=== PATIENT | male | born 1940 | race Caucasian/White ===

== ENCOUNTER → 2017-11-29 | Outpatient (CLI) | payer OTHER ==
[~2017-11-29] VITALS: Ht 180.3 cm; Wt 83.9 kg
[~2017-11-29] MED LIST: ALPRAZOLAM ER0.5 MG PO; CARBIDOPA-LEVO1 EAC6 PO; CARISOPRODOL 3350 MG PO; CARTIA XT180 M1 PO; CLONIDINE0.1 PO; HYDROCODON-ACE1 EAC5 PO; INTRATHECAL MED IT; LASIX 40 MG TAB40 M2 PO; METOLAZONE 2.52.5 MG PO; MIRAPEX0.5 MG PO; NEURONTIN 400400 M1 PO; NORCO 10-325 T1 EACH PO; POTASSIUM20 PO; REMERON15 MG PO; SIMVASTATIN40 MG PO; XANAX 0.5 MG0.5 M1 PO; ZANAFLEX4 MG PO
--- NOTE | ~2017-11-29 | HPC ---
[facility] [address] [place] [address] PAIN MANAGEMENT CONSULTATION Name: PAUL KIMBALL Room #: REG [facility] Avni.#: [id number] Admission: 11/29/17 Attend Phys: Gene Vanegas MD Discharge: Date of : 40 Report #: [id number] THIS REPORT FOR: //name// CC: Deja Esteves DO DATE OF SERVICE: 11/29/2017 CHIEF COMPLAINT: Chronic low back pain with intrathecal pump management and opioid management under terms of written agreement. I am seeing the patient today for the first time in many years. Apparently, I was involved in his care in 2010 when he first began intrathecal therapy. Dr. Esteves has been managing his intrathecal pump at [facility]. The pump has been providing him with good pain relief as long as he can supplement a bit with hydrocodone 10/[address] Esteves has been providing both management tools for him and sees him at 2-month intervals. He complains today of pain in his low back, status post laminectomy and he has some radicular pain as well. Pain is fairly intense with standing and weightbearing, but with medication, he is able to reduce it by at least 50%. He is grateful for the pain relief and denies any significant side effects. He is able to function at a much better level standing, walking and other simple activities of daily livings have been more accessible to him with medication. He has Parkinson's disease, has been followed with neurologist. Medications have been juggled a bit, I am trying to find the best care. His tremor has been fairly well controlled and his disease progress has been slow as of late. He is a pleasant and outgoing gentleman who is supported by family. PHYSICAL EXAMINATION: Demonstrates outgoing 77-year-old, alert and oriented with no signs of medication , anxiety, depression or dementia. He is 5 feet 11 inches, 185 pounds, his BMI is 25.8. His blood pressure is 165/83, heart rate 63, respirations 18. He scores his pain as a 5/10. He has fallen in the last 3 months and is a slight fall risk due to his Parkinson's disease. He is on no blood thinners. No hypertension. He moves from sitting to standing position independently. His gait is antalgic. He has limited range of motion of the lumbar spine and tenderness across the lumbosacral segment. Straight leg raising reproduces some tightness and discomfort into both legs. A slight tremor is noted. Sensation is intact. IMPRESSION: 1. Chronic low back pain with radiculopathy, post-laminectomy syndrome. 2. Management of intrathecal infusion pump. [facility] [address] [place] [address] PAIN MANAGEMENT CONSULTATION Name: PAUL KIMBALL Room #: REG CLRiccardo Izquierdo#: [id number] Admission: 11/29/17 Attend Phys: Gene Vanegas MD Discharge: Date of : 40 Report #: [id number] 3. Management of high risk medications under terms of an opioid agreement. I made an adjustment in his intrathecal pump today. I have increased his dose slightly including his basal rate as well as his flex rate. This will change his refill date to January 24 and we will see him back in the clinic at that time for refill. He is out of medication, Dr. Esteves has been providing him with hydrocodone 10/325 four times daily for an MME of 40 in addition to alprazolam 0.5 mg at bedtime, which he uses for sleep. We discussed the risks associated with benzodiazepine and opioid in combination, but he has been taking it long enough that he has proven that is safe for him. Safeguarding of all medications is the most important aspect of our opioid agreement and he assured me that he carefully manages his medicines. Dr. Esteves has given him Soma and other sedating medications in the past, but I have told at this point in time I would like to hold off on those if we can. Continues to smoke, he was counseled about smoking cessation. He can find smoking programs at cdc.gov. Follow up visit planned on January 24. By: [id number] Gene Vanegas MD /nt
[2017-11-29 14:25] VITALS: BP 165/83
== END ==
LOC: PAIN 07:31
DX: M54.16 Radiculopathy, lumbar region (principal); G89.29 Other chronic pain; Z79.891 Long term (current) use of opiate analgesic

== ENCOUNTER → 2018-01-03 | Outpatient (CLI) | payer OTHER ==
[~2018-01-03] VITALS: Ht 180.3 cm; Wt 85.2 kg
--- NOTE | ~2018-01-03 | HPC ---
[facility] [place] [place] [address] PAIN MANAGEMENT CONSULTATION Name: PAUL KIMBALL Room #: REG ROMAIN Izquierdo#: [id number] Admission: 01/03/18 Attend Phys: Gene Vanegas MD Discharge: Date of : 40 Report #: [id number] THIS REPORT FOR: //name// CC: Gene Garcia DATE OF SERVICE: 01/03/2018 Followup visit for management of intrathecal infusion pump. The patient is here today for the purpose of tapering his intrathecal medications. He has had an intrathecal pump now for nearly a decade. He is not certain that he wants to continue with intrathecal medications in part because of his insurance coverage at the [facility]. He would like to get all of his care there and there is no one there to manage his pump. He is aware that there are some programs, which will allow for outside care to be covered when the care cannot be provided at the [facility]. We did, however, raise the possibility that over time some patients are able to taper off of the more complex intrathecal medication and are able to be managed with oral medications. This would not be a major transition since Dr. Esteves has been providing with oral medication as a supplement to his intrathecal pump throughout the years of his management. He currently uses hydrocodone 10/325 4 times daily for an MME of 40 in addition to alprazolam for anxiety and carisoprodol up to 3 times a day. We are well aware of the sedating properties of these three medications when taken together; however, as we have often seen patients who take medications chronically develop significant tolerance to the side effects. The patient's use of these medications has shown that he has been able to take them with some therapeutic benefit and minimal side effects. I have cautioned him about the use of the Soma and alprazolam and that he should use them only as needed and at the lowest possible dose. Comorbidities include Parkinson's disease and he is on medications for that condition as well. All medications have been reviewed and reconciled from the electronic medical record. He needs no new prescriptions today. PQRS review reports no evidence of significant osteoarthritis. He is lean with a BMI of 26. Vital signs: Blood pressure 149/77, respirations 16 and heart rate is 70. His oxygen saturation on room air is 99%. Pain intensity is 5/10. He is not a fall risk and does not use a cane. He is on no blood thinners. He has been under treatment for hypertension. Medications are reviewed. He has completed an opioid agreement and is considered at low risk for addiction by the opioid risk tool. I reported that he was a smoker at his last visit. That was an error[place] [address] PAIN MANAGEMENT CONSULTATION Name: PAUL KIMBALL Room #: REG ROMAIN Izquierdo#: [id number] Admission: 01/03/18 Attend Phys: Gene Vanegas MD Discharge: Date of : 40 Report #: [id number] confused my notes with another patient. This will set the record straight. He is no longer a user of tobacco. Physical exam also demonstrates a slight tremor. He has an antalgic gait. He complains of mild pain with straight leg raising in each leg. Pain does not follow a dermatomal distribution. There is a scar in his back and palpable hardware from an L5-S1 fusion. The pump is in the left lower quadrant of the abdomen. IMPRESSION: 1. Chronic low back pain with radiculopathy, post-laminectomy syndrome. 2. Management of intrathecal infusion pump. PROCEDURE: After counseling for 15 minutes regarding medications, I reduced his intrathecal infusion by 13%. Daily dose will be hydromorphone 3.0 and clonidine 90. We will make further reduction at his pump refill in January. Time spent with the patient 25 minutes in counseling and the programming. By: [id number] Gene Vanegas MD /nt
[2018-01-03 12:31] VITALS: BP 149/77
== END | disposition home or self-care (01) ==
LOC: PAIN 09:19
DX: Z45.1 Encounter for adjustment and management of infusion pump (principal); G89.29 Other chronic pain; M54.16 Radiculopathy, lumbar region; M96.1 Postlaminectomy syndrome, not elsewhere classified; I10 Essential (primary) hypertension; G20 Parkinson's disease; Z87.891 Personal history of nicotine dependence; Z79.891 Long term (current) use of opiate analgesic; Z88.8 Allergy status to other drugs, medicaments and biological substances

== ENCOUNTER → 2018-01-31 | Outpatient (CLI) | payer OTHER ==
[~2018-01-31] VITALS: Ht 180.3 cm; Wt 86.3 kg
--- NOTE | ~2018-01-31 | HPC ---
[facility] [address] [place] [address] PAIN MANAGEMENT CONSULTATION Name: PAUL KIMBALL Room #: REG ROMAIN Holly.#: [id number] Admission: 01/31/18 Attend Phys: Gene Vanegas MD Discharge: Date of : 40 Report #: [id number] THIS REPORT FOR: //name// CC: Gene Garcia DATE OF SERVICE: 01/31/2018 Followup visit for management of intrathecal infusion pump for the treatment of chronic low back pain with radiculopathy. The patient returns to Pain Clinic today for further decrease in his intrathecal pump. We discussed sequentially lowering his doses. We do not have new medicine and he has currently in his pump only 1.9 mL. He has continued to do reasonably well. He has noted no change as we have tapered his medication. We will make an aggressive reduction today. I have discussed with him the possibility that he may go through some withdrawal. If this is significant, we have established a plan to help manage at both from sympathetic nervous system standpoint as well as for discomfort and pain. Currently, he reports his pain is 4-5, tolerable. Worse with activity, bending, and lifting. Pain is in his low back and right leg. PQRS review shows that he has no history of arthritis. His BMI is 26.5. Not considered a fall risk. He is not on blood thinners. He does have a history of hypertension and is close to levels which we would like to keep him below. Today, blood pressure is 151/78, heart rate 77. He has an opioid agreement on his chart and continues to use hydrocodone. He is at low risk for addiction. Interrogation of the pump was performed. I reduced his daily dose from 3.0 mg of hydromorphone to 0.5 mg. This is the lowest possible dose the pump will allow and will allow us several days to assess his pain control without intrathecal medication per his wishes. Our plan to manage withdrawal is as follows: 1. If his pain increases, he may double his hydrocodone. 2. He will check his blood pressure frequently today and tomorrow. If his blood pressure exceeds the level of 170/90 either number, he will contact the clinic. 3. Because there is clonidine in the pump, I have initiated clonidine orally 0.1 mg b.i.d. If his blood pressure is elevated, he may double that dose. 4. I gave him my cell phone number. If he is having trouble reaching anyone during a period of withdrawal, he can contact me either by phone call or texting and we will establish a plan. 5. If none of the above is effective, he is instructed to go to the Emergency Room. [address] [address] PAIN MANAGEMENT CONSULTATION Name: REHANAPAUL GALA Room #: REG ROMAIN Izquierdo#: [id number] Admission: 01/31/18 Attend Phys: Gene Vanegas MD Discharge: Date of : 40 Report #: [id number] Appointment was made for [place]. If we determine that he needs a refill and to reestablish intrathecal medication, we will do so. I believe that this will provide us with an adequate trial to see if he can be without the pump. He would really like to go without it in the future. All other medications are reviewed and reconciled. Medications renewed for chronic use are hydrocodone 10/325 one tablet 4 times daily 120 tablets and alprazolam 0.5 mg 1/2-1 tablet at bedtime p.r.n. for insomnia. This has worked well and he has had no additive effects to his opioids or dangerous concerning events. We discussed the benzodiazepine and opioid interaction. He will safeguard all medications. Followup visit planned by phone on Sunday. By: [id number] Gene Vanegas MD /thom
[2018-01-31 08:50] VITALS: BP 151/78
== END | disposition home or self-care (01) ==
LOC: PAIN 06:51
DX: Z45.1 Encounter for adjustment and management of infusion pump (principal); G89.29 Other chronic pain; M54.10 Radiculopathy, site unspecified; I10 Essential (primary) hypertension

== ENCOUNTER → 2018-02-04 | Outpatient (CLI) | payer OTHER ==
[~2018-02-04] VITALS: Ht 180.3 cm; Wt 87.3 kg
[2018-02-04 11:03] VITALS: BP 108/72
== END | disposition home or self-care (01) ==
LOC: PAIN 08:09
DX: Z45.1 Encounter for adjustment and management of infusion pump (principal); Z88.8 Allergy status to other drugs, medicaments and biological substances; Z79.899 Other long term (current) drug therapy; Z87.891 Personal history of nicotine dependence